=== PATIENT | female | born 1980 | race African-American/Black ===

== ENCOUNTER 2017-09-16 12:10 | Emergency (ER) | payer MEDICARE, MEDICAID ==
[~2017-09-16] VITALS: Ht 154.9 cm; Wt 62.0 kg
[2017-09-16 12:26] VITALS: BP 160/100
[2017-09-16] MEDS ORDERED: CLOT15CR73 TP (13:50)
== END 2017-09-16 13:58 | disposition home or self-care (01) ==
LOC: ER 12:10
DX: L30.9 Dermatitis, unspecified (principal); Z98.890 Other specified postprocedural states; Z88.0 Allergy status to penicillin
CPT/HCPCS: 99282

== ENCOUNTER 2020-05-03 06:58 | Emergency (ER) | payer MEDICARE, MEDICAID ==
[~2020-05-03] VITALS: Ht 154.9 cm; Wt 60.4 kg
[~2020-05-03 06:58] MED LIST: CLOT15CR73 TP
[2020-05-03 07:15] VITALS: BP 162/94
[2020-05-03 07:59] LABS: CLARITY,URINE SLIGHTLY CLOUDY (Clear); COLOR,URINE YELLOW (Yellow); GLUCOSE, URINE NEGATIVE (Neg); KETONES,URINE NEGATIVE (Neg); LEUKOCYTE ESTERASE ,URINE NEGATIVE (Neg); NITRITES, URINE NEGATIVE (Neg); OCCULT BLOOD,URINE NEGATIVE (Neg); PH,URINE 5.5 (4.8-8.0); PROTEIN,URINE NEGATIVE (Neg); UROBILINOGEN,URINE 0.2 E.U/dL (0.2-1.0)
[2020-05-03 08:00] LABS: UA COLLECTION TYPE CLN CATCH MIDSTREAM; URINE HCG NEGATIVE (NEG)
[2020-05-03] MEDS ORDERED: CefTRIAXone 250MG IM Kit w/LIDOcaine IM ONE (08:10)
[2020-05-03] MEDS ORDERED: azithromycin 250mg tablet PO ONE (08:10)
[2020-05-03 08:12] LABS: MUCUS STRANDS MODERATE /LPF (Neg); SQUAMOUS EPITHELIAL CELL,UR MANY /LPF (FEW)
[2020-05-03 08:13] LABS: BACTERIA,URINE FEW /HPF (Neg); RBC,URINE 0-2 /HPF (0-2); WBC,URINE 0-4 /HPF (0-4)
[2020-05-03 10:02] LABS: BASOPHILS # (AUTO) 0.1 X10'3 (0-0.2); BASOPHILS % (AUTO) 0.7 % (0-1); EOSINOPHILS # (AUTO) 0.1 X10'3 (0-0.9); EOSINOPHILS % (AUTO) 1.6 % (0-6); HEMATOCRIT 37.1 % (35.0-45.0); HEMOGLOBIN 12.3 g/dl (12.0-16.0); LYMPHOCYTES # (AUTO) 1.4 X10'3 (1.1-4.8); LYMPHOCYTES % (AUTO) 20.8 % (21-51); MEAN CORPUSCULAR HEMOGLOBIN 29.7 PG (27.0-31.0); MEAN CORPUSCULAR VOLUME 89.8 FL (78-98); MEAN PLATELET VOLUME 8.1 FL (7.4-10.4); MONOCYTES # (AUTO) 0.7 X10'3 (0-0.9); MONOCYTES % (AUTO) 9.4 % (2-12); NEUTROPHILS # (AUTO) 4.7 X10'3 (1.8-7.7); NEUTROPHILS % (AUTO) 67.5 % (42-75); PLATELET COUNT 332 X10'3 (140-440); RED BLOOD COUNT 4.13 X10'6 (4.20-5.60); RED CELL DISTRIBUTION WIDTH 14.8 % (11.5-14.5)
[2020-05-03 10:17] LABS: ALANINE AMINOTRANSFERASE 17 U/L (12-78); ALBUMIN 4.1 G/DL (3.4-5.0); ALKALINE PHOSPHATASE 84 IU/L (46-116); ANION GAP 7 (8-16); ASPARTATE AMINO TRANSFERASE 13 U/L (10-37); BILIRUBIN,TOTAL 0.4 MG/DL (0.1-1.0); BLOOD UREA NITROGEN 7 MG/DL (7-18); CALCIUM 9.5 MG/DL (8.5-10.1); CHLORIDE 105 MMOL/L (99-107); CREATININE 0.88 MG/DL (0.40-0.90); GLUCOSE 84 MG/DL (70-104); LIPASE 145 U/L (73-393); POTASSIUM 3.9 MMOL/L (3.5-5.1); SODIUM 139 MMOL/L (135-145); TOTAL CARBON DIOXIDE 26.7 MMOL/L (24-32); TOTAL PROTEIN 8.1 G/DL (6.4-8.2); eGFR 86 ML/MIN
[2020-05-03 10:45] LABS: PLATELET ESTIMATE NORMAL
[2020-05-03 10:47] LABS: LARGE PLATELETS FEW; SCHISTOCYTES FEW
== END 2020-05-03 11:02 | disposition home or self-care (01) ==
LOC: ER 06:58
DX: R10.30 Lower abdominal pain, unspecified (principal); R11.10 Vomiting, unspecified; I10 Essential (primary) hypertension; F17.200 Nicotine dependence, unspecified, uncomplicated; F12.90 Cannabis use, unspecified, uncomplicated; Z72.89 Other problems related to lifestyle; Z98.890 Other specified postprocedural states; Z88.0 Allergy status to penicillin; Z79.899 Other long term (current) drug therapy
CPT/HCPCS: 36415; 76856; 80053; 81001; 81025; 83690; 85008; 85025; 87210; 87491; 87591; 93976; 96372; 99284; J0696; Q0112

== ENCOUNTER 2022-01-21 20:26 | Emergency (ER) | payer MEDICARE, MEDICAID ==
[~2022-01-21] VITALS: Ht 157.5 cm; Wt 65.0 kg
[2022-01-21 20:41] VITALS: BP 150/90
[2022-01-21 21:29] LABS: CLARITY,URINE CLEAR (Clear); COLOR,URINE YELLOW (Yellow); GLUCOSE, URINE NEGATIVE (Neg); KETONES,URINE NEGATIVE (Neg); LEUKOCYTE ESTERASE ,URINE NEGATIVE (Neg); NITRITES, URINE NEGATIVE (Neg); OCCULT BLOOD,URINE NEGATIVE (Neg); PH,URINE 5.5 (4.8-8.0); PROTEIN,URINE NEGATIVE (Neg); UROBILINOGEN,URINE 0.2 E.U/dL (0.2-1.0)
[2022-01-21 21:30] LABS: URINE HCG NEGATIVE (NEG)
[2022-01-21 21:31] LABS: UA COLLECTION TYPE CLN CATCH MIDSTREAM
[2022-01-21 21:57] LABS: BASOPHILS # (AUTO) 0.1 X10'3 (0-0.2); EOSINOPHILS # (AUTO) 0.1 X10'3 (0-0.9); EOSINOPHILS % (AUTO) 1.7 % (0-6); HEMATOCRIT 34.5 % (35.0-45.0); HEMOGLOBIN 11.4 g/dl (12.0-16.0); LYMPHOCYTES # (AUTO) 2.3 X10'3 (1.1-4.8); LYMPHOCYTES % (AUTO) 37.5 % (21-51); MEAN CORPUSCULAR HEMOGLOBIN 27.3 PG (27.0-31.0); MEAN CORPUSCULAR VOLUME 82.6 FL (78-98); MONOCYTES # (AUTO) 0.7 X10'3 (0-0.9); MONOCYTES % (AUTO) 11.5 % (2-12); NEUTROPHILS % (AUTO) 48.3 % (42-75); PLATELET COUNT 372 X10'3 (140-440); RED BLOOD COUNT 4.18 X10'6 (4.20-5.60); RED CELL DISTRIBUTION WIDTH 17.2 % (11.5-14.5); WHITE BLOOD COUNT 6.1 X10'3 (4.5-11.0)
[2022-01-21 22:22] LABS: ALANINE AMINOTRANSFERASE 16 U/L (12-78); ALBUMIN 3.7 G/DL (3.4-5.0); ALBUMIN/GLOBULIN RATIO 0.9 (1.1-1.5); ALKALINE PHOSPHATASE 82 IU/L (46-116); ANION GAP 9 (8-16); ASPARTATE AMINO TRANSFERASE 13 U/L (10-37); BILIRUBIN,TOTAL 0.1 MG/DL (0.1-1.0); BLOOD UREA NITROGEN 6 MG/DL (7-18); CHLORIDE 97 MMOL/L (99-107); CREATININE 0.86 MG/DL (0.40-0.90); GLUCOSE 103 MG/DL (70-104); LIPASE 385 U/L (73-393); POTASSIUM 3.4 MMOL/L (3.5-5.1); SODIUM 133 MMOL/L (135-145); TOTAL CARBON DIOXIDE 27.2 MMOL/L (24-32); TOTAL PROTEIN 7.7 G/DL (6.4-8.2); eGFR 88 ML/MIN
[2022-01-21] MEDS ORDERED: FLUC200T PO (22:41)
== END 2022-01-21 22:52 | disposition home or self-care (01) ==
LOC: ER 20:27
DX: B37.3 Candidiasis of vulva and vagina (principal); Z11.3 Encounter for screening for infections with a predominantly sexual mode of transmission; I10 Essential (primary) hypertension; F12.10 Cannabis abuse, uncomplicated; Z88.0 Allergy status to penicillin; Z79.899 Other long term (current) drug therapy
CPT/HCPCS: 36415; 80053; 81003; 81025; 83690; 85025; 87491; 99284

== ENCOUNTER 2022-12-30 22:39 | Emergency (ER) | payer MEDICAID, MEDICARE ==
[~2022-12-30] VITALS: Ht 154.9 cm; Wt 59.1 kg
[~2022-12-30 22:39] MED LIST changes: +FLUC200T PO
[2022-12-30 22:55] VITALS: BP 187/96; PULSE 72; RESP 16; O2SAT 100
[2022-12-30 23:54] LABS: URINE HCG NEGATIVE (NEG)
[2022-12-30 23:55] LABS: BILIRUBIN,URINE NEGATIVE (Neg); CLARITY,URINE CLEAR (Clear); COLOR,URINE YELLOW (Yellow); GLUCOSE, URINE NEGATIVE (Neg); KETONES,URINE NEGATIVE (Neg); LEUKOCYTE ESTERASE ,URINE NEGATIVE (Neg); NITRITES, URINE NEGATIVE (Neg); OCCULT BLOOD,URINE NEGATIVE (Neg); PROTEIN,URINE NEGATIVE (Neg); UROBILINOGEN,URINE 0.2 E.U/dL (0.2-1.0)
[2022-12-30] MEDS ORDERED: acetaminophen 325mg tablet PO ONE (23:55)
[2022-12-31 00:02] LABS: UA COLLECTION TYPE CLN CATCH MIDSTREAM
[2022-12-31 00:33] LABS: BASOPHILS % (AUTO) 0.5 % (0-1); EOSINOPHILS # (AUTO) 0.1 X10'3 (0-0.9); EOSINOPHILS % (AUTO) 2.1 % (0-6); HEMATOCRIT 32.2 % (35.0-45.0); HEMOGLOBIN 10.4 g/dl (12.0-16.0); LYMPHOCYTES # (AUTO) 2.2 X10'3 (1.1-4.8); LYMPHOCYTES % (AUTO) 38.1 % (21-51); MEAN CORPUSCULAR HEMOGLOBIN 26.5 PG (27.0-31.0); MEAN CORPUSCULAR HGB CONC 32.4 g/dL (33.0-36.5); MEAN CORPUSCULAR VOLUME 81.8 FL (78-98); MEAN PLATELET VOLUME 7.8 FL (7.4-10.4); MONOCYTES # (AUTO) 0.7 X10'3 (0-0.9); NEUTROPHILS # (AUTO) 2.8 X10'3 (1.8-7.7); NEUTROPHILS % (AUTO) 47.3 % (42-75); PLATELET COUNT 283 X10'3 (140-440); RED BLOOD COUNT 3.93 X10'6 (4.20-5.60); RED CELL DISTRIBUTION WIDTH 17.8 % (11.5-14.5); WHITE BLOOD COUNT 5.9 X10'3 (4.5-11.0)
[2022-12-31 00:47] LABS: ALANINE AMINOTRANSFERASE 8 U/L (12-78); ALBUMIN 3.4 G/DL (3.4-5.0); ALBUMIN/GLOBULIN RATIO 0.9 (1.1-1.5); ALKALINE PHOSPHATASE 69 IU/L (46-116); ANION GAP 8 (8-16); ASPARTATE AMINO TRANSFERASE 11 U/L (10-37); BILIRUBIN,TOTAL 0.1 MG/DL (0.1-1.0); BLOOD UREA NITROGEN 12 MG/DL (7-18); BUN/CREATININE RATIO 13.8 (10.0-20.0); CALCIUM 9.2 MG/DL (8.5-10.1); CHLORIDE 103 MMOL/L (99-107); CREATININE 0.87 MG/DL (0.40-0.90); GLUCOSE 94 MG/DL (70-104); LIPASE 175 U/L (73-393); POTASSIUM 3.2 MMOL/L (3.5-5.1); SODIUM 138 MMOL/L (135-145); TOTAL CARBON DIOXIDE 27.3 MMOL/L (24-32); eCRCL 63 ML/MIN; eGFR 86 ML/MIN
[2022-12-31] MEDS ORDERED: MICO45CR73 VG (01:18)
[2022-12-31] MEDS ORDERED: POTA-207 PO (01:18)
== END 2022-12-31 01:45 | disposition home or self-care (01) ==
LOC: ER 22:40
DX: E87.6 Hypokalemia (principal); B37.9 Candidiasis, unspecified; R10.30 Lower abdominal pain, unspecified; I10 Essential (primary) hypertension; Z72.89 Other problems related to lifestyle; Z98.891 History of uterine scar from previous surgery; Z88.0 Allergy status to penicillin; Z79.899 Other long term (current) drug therapy
CPT/HCPCS: 36415; 80053; 81003; 81025; 83690; 84145; 85025; 87491; 99283

== ENCOUNTER 2023-06-24 08:24 | Emergency (ER) | payer MEDICAID ==
[~2023-06-24] VITALS: Ht 154.9 cm; Wt 63.6 kg
[~2023-06-24 08:24] MED LIST changes: +MICO45CR73 VG
[2023-06-24 08:26] VITALS: O2SAT 98
[2023-06-24] MEDS ORDERED: NEOM10SO7 RIGHT EAR (09:13)
[2023-06-24 09:35] VITALS: BP 181/109; PULSE 74; RESP 16; TEMP 97
== END 2023-06-24 09:37 | disposition home or self-care (01) ==
LOC: ER 08:25
DX: H61.22 Impacted cerumen, left ear (principal); I10 Essential (primary) hypertension; F12.90 Cannabis use, unspecified, uncomplicated; Z88.0 Allergy status to penicillin; Z79.2 Long term (current) use of antibiotics; Z79.899 Other long term (current) drug therapy; Z98.890 Other specified postprocedural states
CPT/HCPCS: 69209; 99283

== ENCOUNTER 2023-09-25 06:49 | Emergency (ER) | payer MEDICAID ==
[~2023-09-25] VITALS: Ht 154.9 cm; Wt 61.0 kg
[~2023-09-25 06:49] MED LIST changes: +NEOM10SO7 RIGHT EAR
[2023-09-25 07:08] VITALS: BP 196/97; PULSE 75; RESP 16; TEMP 97.6; O2SAT 100
[2023-09-25 07:43] LABS: BILIRUBIN,URINE NEGATIVE (Neg); CLARITY,URINE CLEAR (Clear); COLOR,URINE YELLOW (Yellow); GLUCOSE, URINE NEGATIVE (Neg); KETONES,URINE NEGATIVE (Neg); LEUKOCYTE ESTERASE ,URINE NEGATIVE (Neg); NITRITES, URINE NEGATIVE (Neg); OCCULT BLOOD,URINE NEGATIVE (Neg); PROTEIN,URINE NEGATIVE (Neg); UROBILINOGEN,URINE 0.2 E.U/dL (0.2-1.0)
[2023-09-25 07:46] LABS: URINE HCG NEGATIVE (NEG)
[2023-09-25 07:47] LABS: UA COLLECTION TYPE CLN CATCH MIDSTREAM
[2023-09-25 09:20] LABS: EOSINOPHILS # (AUTO) 0.1 X10'3 (0-0.9); LYMPHOCYTES # (AUTO) 1.4 X10'3 (1.1-4.8)
[2023-09-25 09:21] LABS: BASOPHILS % (AUTO) 0.8 % (0-1); EOSINOPHILS % (AUTO) 2.2 % (0-6); HEMATOCRIT 33.9 % (35.0-45.0); HEMOGLOBIN 10.9 g/dl (12.0-16.0); LYMPHOCYTES % (AUTO) 25.5 % (21-51); MEAN CORPUSCULAR HEMOGLOBIN 26.5 PG (27.0-31.0); MEAN CORPUSCULAR HGB CONC 32.1 g/dL (33.0-36.5); MEAN CORPUSCULAR VOLUME 82.5 FL (78-98); MONOCYTES # (AUTO) 0.6 X10'3 (0-0.9); MONOCYTES % (AUTO) 11.8 % (2-12); NEUTROPHILS # (AUTO) 3.3 X10'3 (1.8-7.7); NEUTROPHILS % (AUTO) 59.7 % (42-75); PLATELET COUNT 301 X10'3 (140-440); RED BLOOD COUNT 4.11 X10'6 (4.20-5.60); RED CELL DISTRIBUTION WIDTH 17.6 % (11.5-14.5); WHITE BLOOD COUNT 5.5 X10'3 (4.5-11.0)
[2023-09-25 09:44] LABS: HCG SERUM QL NEGATIVE
[2023-09-25 10:11] LABS: ALANINE AMINOTRANSFERASE 14 U/L (12-78); ALBUMIN 3.5 G/DL (3.4-5.0); ALBUMIN/GLOBULIN RATIO 0.9 (1.1-1.5); ALKALINE PHOSPHATASE 71 IU/L (46-116); ANION GAP 6 (8-16); ASPARTATE AMINO TRANSFERASE 12 U/L (10-37); BILIRUBIN,TOTAL 0.2 MG/DL (0.1-1.0); BLOOD UREA NITROGEN 6 MG/DL (7-18); BUN/CREATININE RATIO 8.7 (10.0-20.0); CALCIUM 9.4 MG/DL (8.5-10.1); CHLORIDE 104 MMOL/L (99-107); CREATININE 0.69 MG/DL (0.40-0.90); GLUCOSE 76 MG/DL (70-104); LIPASE 32 U/L (16-77); POTASSIUM 3.9 MMOL/L (3.5-5.1); SODIUM 135 MMOL/L (135-145); TOTAL CARBON DIOXIDE 25.2 MMOL/L (24-32); TOTAL PROTEIN 7.3 G/DL (6.4-8.2); eCRCL 79 ML/MIN; eGFR > 90 ML/MIN
[2023-09-25] MEDS ORDERED: METR-349 PO (11:06)
[2023-09-25] MEDS ORDERED: AZIT1PAC10 PO (11:06)
[2023-09-27 06:16] LABS: CHLAMYDIA TRACHOMATIS, NAA Negative (Negative)
== END 2023-09-25 17:27 | disposition home or self-care (01) ==
LOC: ER 06:49
DX: Z11.3 Encounter for screening for infections with a predominantly sexual mode of transmission (principal); I10 Essential (primary) hypertension; F12.90 Cannabis use, unspecified, uncomplicated; Z88.0 Allergy status to penicillin; Z79.2 Long term (current) use of antibiotics; Z79.899 Other long term (current) drug therapy
CPT/HCPCS: 36415; 80053; 81003; 81025; 83690; 84703; 85025; 87491; 99283

== ENCOUNTER 2024-04-18 04:47 | Emergency (ER) | payer MEDICARE, MEDICAID ==
[~2024-04-18] VITALS: Ht 154.9 cm; Wt 60.0 kg
[~2024-04-18 04:47] MED LIST changes: +AZIT1PAC10 PO
[2024-04-18 04:49] VITALS: PULSE 96; TEMP 97.4
[2024-04-18] MEDS: ondansetron 4mg rapidly disintigrating tab PO ONE (05:36)
[2024-04-18] MEDS: meclizine 12.5mg tablet PO ONE (05:37)
[2024-04-18] MEDS: acetaminophen 325mg tablet PO ONE (05:38)
[2024-04-18 06:15] LABS: URINE HCG NEGATIVE (NEG)
[2024-04-18 06:21] LABS: BILIRUBIN,URINE NEGATIVE (Neg); CLARITY,URINE CLEAR (Clear); COLOR,URINE YELLOW (Yellow); GLUCOSE, URINE NEGATIVE (Neg); KETONES,URINE NEGATIVE (Neg); LEUKOCYTE ESTERASE ,URINE NEGATIVE (Neg); NITRITES, URINE NEGATIVE (Neg); OCCULT BLOOD,URINE NEGATIVE (Neg); PROTEIN,URINE NEGATIVE (Neg); UROBILINOGEN,URINE 0.2 E.U/dL (0.2-1.0)
[2024-04-18 06:28] VITALS: BP 123/75; RESP 18; O2SAT 96
[2024-04-18 06:30] LABS: UA COLLECTION TYPE CLN CATCH MIDSTREAM
[2024-04-21 07:10] LABS: CHLAMYDIA TRACHOMATIS, NAA Negative (Negative)
== END 2024-04-18 06:00 | disposition home or self-care (01) ==
LOC: ER 04:47
DX: Z11.3 Encounter for screening for infections with a predominantly sexual mode of transmission (principal); I10 Essential (primary) hypertension; F12.90 Cannabis use, unspecified, uncomplicated; R42 Dizziness and giddiness; Z88.0 Allergy status to penicillin; Z98.890 Other specified postprocedural states
CPT/HCPCS: 36415; 81003; 81025; 87491; 87591; 99284; J8597

== ENCOUNTER 2024-06-05 02:24 | Emergency (ER) | payer MEDICARE, MEDICAID ==
[~2024-06-05] VITALS: Ht 154.9 cm; Wt 60.3 kg
[2024-06-05 02:28] VITALS: TEMP 98.2
[2024-06-05 02:56] LABS: URINE HCG NEGATIVE (NEG)
[2024-06-05 02:59] LABS: BILIRUBIN,URINE NEGATIVE (Neg); CLARITY,URINE CLEAR (Clear); COLOR,URINE YELLOW (Yellow); GLUCOSE, URINE NEGATIVE (Neg); KETONES,URINE NEGATIVE (Neg); LEUKOCYTE ESTERASE ,URINE NEGATIVE (Neg); NITRITES, URINE NEGATIVE (Neg); OCCULT BLOOD,URINE TRACE-INTACT (Neg); PH,URINE 5.5 (4.8-8.0); PROTEIN,URINE 30 mg/dl (Neg); UROBILINOGEN,URINE 0.2 E.U/dL (0.2-1.0)
[2024-06-05 03:05] LABS: UA COLLECTION TYPE CLN CATCH MIDSTREAM
[2024-06-05 03:12] LABS: BACTERIA,URINE 4+ /HPF (Neg); RBC,URINE 0-2 /HPF (0-2); SQUAMOUS EPITHELIAL CELL,UR MANY /LPF (FEW); WBC,URINE 0-4 /HPF (0-4)
[2024-06-05 03:14] LABS: MEAN PLATELET VOLUME 8.1 FL (7.4-10.4); MONOCYTES # (AUTO) 0.6 X10'3 (0-0.9)
[2024-06-05 03:15] LABS: BASOPHILS % (AUTO) 0.6 % (0-1); EOSINOPHILS % (AUTO) 0.5 % (0-6); HEMATOCRIT 36.5 % (35.0-45.0); LYMPHOCYTES # (AUTO) 1.2 X10'3 (1.1-4.8); LYMPHOCYTES % (AUTO) 15.3 % (21-51); MEAN CORPUSCULAR HEMOGLOBIN 27.8 PG (27.0-31.0); MEAN CORPUSCULAR HGB CONC 32.8 g/dL (33.0-36.5); MEAN CORPUSCULAR VOLUME 84.8 FL (78-98); MONOCYTES % (AUTO) 7.6 % (2-12); NEUTROPHILS # (AUTO) 5.9 X10'3 (1.8-7.7); PLATELET COUNT 378 X10'3 (140-440); RED CELL DISTRIBUTION WIDTH 18.2 % (11.5-14.5); WHITE BLOOD COUNT 7.7 X10'3 (4.5-11.0)
[2024-06-05] MEDS: ketorolac trometh 15mg/ml vial 15 MG/ML ML IM ONE (03:25)
[2024-06-05 03:32] LABS: ALANINE AMINOTRANSFERASE 16 U/L (12-78); ALBUMIN 3.9 G/DL (3.4-5.0); ALKALINE PHOSPHATASE 84 IU/L (46-116); ANION GAP 9 (8-16); ASPARTATE AMINO TRANSFERASE 11 U/L (10-37); BILIRUBIN,TOTAL 0.4 MG/DL (0.1-1.0); BLOOD UREA NITROGEN 5 MG/DL (7-18); CHLORIDE 101 MMOL/L (99-107); CREATININE 0.83 MG/DL (0.40-0.90); GLUCOSE 141 MG/DL (70-104); LIPASE 44 U/L (16-77); POTASSIUM 3.3 MMOL/L (3.5-5.1); SODIUM 136 MMOL/L (135-145); TOTAL CARBON DIOXIDE 25.6 MMOL/L (24-32); eCRCL 65 ML/MIN; eGFR 90 ML/MIN
[2024-06-05 03:56] LABS: PLATELET ESTIMATE NORMAL
[2024-06-05] MEDS ORDERED: iohexol 300mg/ml 100ml inj. ONE (04:08)
[2024-06-05 05:06] VITALS: BP 165/85; PULSE 80; RESP 15; O2SAT 99
[2024-06-05] MEDS ORDERED: FLUC200T8 PO (05:07)
[2024-06-05] MEDS ORDERED: CEFU250T95 PO (05:07)
== END 2024-06-05 05:16 | disposition home or self-care (01) ==
LOC: ER 02:25
DX: N39.0 Urinary tract infection, site not specified (principal); D25.9 Leiomyoma of uterus, unspecified; I10 Essential (primary) hypertension; F12.90 Cannabis use, unspecified, uncomplicated; F17.210 Nicotine dependence, cigarettes, uncomplicated; Z88.0 Allergy status to penicillin; Z98.890 Other specified postprocedural states
CPT/HCPCS: 36415; 74176; 74177; 80053; 81001; 81025; 83690; 85008; 85025; 96372; 99285; J1885; Q9967

== ENCOUNTER 2025-01-23 06:52 | Emergency (ER) | payer MEDICAID, MEDICARE ==
[~2025-01-23] VITALS: Ht 154.9 cm; Wt 58.1 kg
--- NOTE | 2025-01-23 07:09 | Physician Documentation ---
History of Present Illness General Chief Complaint: Abdominal Pain Stated Complaint: ABD PAIN Time Seen by MD: 07:05 Primary Medical Doctor: [facility] History of Present Illness Initial Comments The patient is a 44-year-old female with a history of hypertension and bacterial vaginosis who presents today with left lower abdominal pain over the past few days. She does have a history of yeast infections and UTIs. Her last menstrual period was the 1st of last month. Medication Reconciliation Allergies: Coded Allergies: Penicillins (Unverified Allergy, Intermediate, 01/23/25) Past Medical History Past Medical History: Hypertension Past Surgical History: Smoking: Cigarettes Alcohol Use: Occasionally Drug Use: marijuana Lives with: Family Lives In: Home Review of Systems ROS Constitutional: Denies chills, fatigue, fever, weight gain or weight loss. HEENT: Denies hearing loss, sinus pressure or visual changes. Respiratory: Denies cough, shortness of breath or wheezing. Cardiovascular: Denies chest pain, pain while walking (claudication), edema or palpitations. Gastrointestinal: Lower abdominal pain similar to her visit in June of this year. Genitourinary: Denies painful urination (dysuria), excessive amount of urine (polyuria) or urinary frequency. Metabolic/Endocrine: Denies cold intolerance, heat intolerance, excessive thirst (polydipsia) or excessive hunger (polyphagia). Neurological: Denies dizziness, extremity numbness, extremity weakness, headaches, seizures or tremors. Psychiatric: Denies anxiety or depression. Integumentary: Denies breast discharge, breast lump, hives, mole change(s), rash or skin lesion. Musculoskeletal: Denies back pain, joint pain, joint swelling or neck pain. Hematologic: Denies easily bleeding, easily bruises, lymphedema or issues with blood clots. Immunologic: Denies food allergies or seasonal allergies. Physical Exam Physical Exam Vital Signs: Temperature: 97.6, Source: Oral, Heart Rate: 96, Respiratory Rate: 18, BP: 148/86, Pulse Oximetry: 98, Weight: 58.100 Physical Exam Physical Exam Vitals and nursing note reviewed. Constitutional: General: Patient is awake, alert, oriented x 4 in no acute distress and well appearing. Speech is clear and lucid. Appearance: Normal appearance. Patient is not ill-appearing, toxic-appearing or diaphoretic. HENT: Head: Normocephalic and atraumatic. Mouth/Throat: Mouth: Mucous membranes are moist. Pharynx: Oropharynx is clear. Eyes: General: No scleral icterus. Extraocular Movements: Extraocular movements intact. Pupils: Pupils are equal, round, and reactive to light. Neck: Supple, no Kernig or Brudzinski sign. Cardiovascular: Rate and Rhythm: Normal rate and regular rhythm. Heart sounds: No murmur heard. Pulmonary: Effort: No respiratory distress. Breath sounds: No wheezing, rhonchi or rales. Abdominal: General: There is no distension. Palpations: There is no fluid wave, hepatomegaly or mass. Tenderness: There is no abdominal tenderness. There is no guarding. Musculoskeletal: General: No swelling or deformity. Skin: Coloration: Skin is not jaundiced. Findings: No erythema or rash. Neurological: Mental Status: Patient is alert. Progress Results/Orders Results/Orders Orders - JOAQUIN SOLIMAN MD Chlam/Gc Amp Ur (01/23/25 08:08) Us Pelvis Ltd (01/23/25 ) Ultrasound Pelvis W/Orwo Dplx (01/23/25 ) Completed Orders - JOAQUIN SOLIMAN MD Urinalysis, Cult If Indicated (01/23/25 07:01) Hcg, Ur Ql (01/23/25 07:01) Cbc/Diff (01/23/25 07:01) BMP (01/23/25 07:01) Lipase (01/23/25 07:01) CMP (01/23/25 07:01) Acetaminophen 325mg Tablet (Tylenol Tabl (01/23/25 07:25) Medications Received in ER Medications (Trade) Dose Ordered Sig/Aruna Route PRN Reason Start Time Stop Time Status Last Admin Dose Admin (Tylenol tablet) 650 mg ONCE STAT PO 01/23/25 07:25 01/23/25 07:27 DC 01/23/25 07:32 650 MG Vital Signs 01/23/25 01/23/25 01/23/25 01/23/25 06:56 07:21 07:33 08:13 Temp 97.6 97.6 97.6 Pulse 96 81 69 Resp 18 16 16 B/P (MAP) 148/86 150/90 (110) 143/77 (99) Pulse Ox 98 100 100 O2 Flow Rate 0 0 Laboratory Tests Test 01/23/25 07:10 01/23/25 07:20 Urine Specimen Description Cln catch midstream Urine Color Straw Urine Clarity Clear Urine pH 6.0 Urine Specific [place] 1.015 Urine Protein Negative Urine Glucose (UA) Negative Urine Ketones Negative Urine Occult Blood Negative Urine Nitrite Negative Urine Bilirubin Negative Urine Urobilinogen 0.2 Urine Leukocyte Esterase Negative Urine Culture Indicated Not ind Volume Urine Centrifuged 10 ml Urine HCG, Qualitative Negative Urine Comment White Blood Count 5.9 Red Blood Count 4.18 L Hemoglobin 11.9 L Hematocrit 36.6 Mean Corpuscular Volume 87.5 Mean Corpuscular Hemoglobin 28.6 Mean Corpuscular Hemoglobin Concent 32.6 L Red Cell Distribution Width 15.0 H Platelet Count 362 Mean Platelet Volume 8.1 Neutrophils (%) (Auto) 56.9 Lymphocytes (%) (Auto) 29.6 Monocytes (%) (Auto) 10.6 Eosinophils (%) (Auto) 2.1 Basophils (%) (Auto) 0.8 Neutrophils # (Auto) 3.3 Lymphocytes # (Auto) 1.7 Monocytes # (Auto) 0.6 Eosinophils # (Auto) 0.1 Basophils # (Auto) 0.0 CBC Comment Sodium Level 139 Potassium Level 3.9 Chloride Level 104 Carbon Dioxide Level 24.0 Anion Gap 11 Blood Urea Nitrogen 10 Creatinine 0.86 Estimated GFR/1.73 m2 86 BUN/Creatinine Ratio 11.6 Glucose Level 95 Calcium Level 9.7 Total Bilirubin 0.3 Aspartate Amino Transf (AST/SGOT) 15 Alanine Aminotransferase (ALT/SGPT) 16 Alkaline Phosphatase 80 Total Protein 8.0 Albumin 3.8 Globulin 4.2 Albumin/Globulin Ratio 0.9 L Lipase 104 H Chemistry Comments Medical Decision Making Findings This 44-year-old lady with a history of bacterial vaginosis comes in with some left suprapubic pain and vaginal discharge characteristic of her prior episodes of bacterial vaginosis. She is also prone to yeast infections. Urinalysis is within normal limits. Ultrasound of the pelvis reveals good vascular flow in both ovaries and numerous uterine fibroids, reported before. I am going to treat her with metronidazole and fluconazole. I will have her follow-up with her PCP and I have provided return precautions. Departure Disposition: 01 HOME / SELF CARE / HOMELESS Impression: Primary Impression: Bacterial vaginosis Additional Impression: Fibroid uterus Condition: Stable Additional Instructions: Please take the metronidazole (Flagyl) as directed. Take one fluconazole every three days. Please follow-up with your PCP next week. Return here for worsening symptoms or new/unusual symptoms. Referrals: NO PRIMARY CARE PROVIDER (PCP) Prescriptions Fluconazole* (Diflucan*) 150 Mg Tablet 1 TAB PO as directed, #2 TAB Prov: JOAQUIN SOLIMAN MD 01/23/25 Metronidazole* (Flagyl*) 500 Mg Tablet 1 TAB PO Q12H for 7 Days, #14 TAB Prov: JOAQUIN SOLIMAN MD 01/23/25 Education Educated: Patient Educated regarding: diagnosis, treatment, prognosis, need for follow up Signature Scribe Signature: . Attestation: . JOAQUIN SOLIMAN MD Jan 23, 2025 07:09
[2025-01-23 07:35] LABS: URINE HCG NEGATIVE (NEG)
[2025-01-23 07:42] LABS: LEUKOCYTE ESTERASE ,URINE NEGATIVE (Neg); NITRITES, URINE NEGATIVE (Neg); OCCULT BLOOD,URINE NEGATIVE (Neg)
[2025-01-23 07:43] LABS: UA COLLECTION TYPE CLN CATCH MIDSTREAM
[2025-01-23 07:46] LABS: MEAN PLATELET VOLUME 8.1 FL (7.4-10.4); RED CELL DISTRIBUTION WIDTH 15.0 % (11.5-14.5)
[2025-01-23 07:50] LABS: CREATININE 0.86 MG/DL (0.40-0.90); TOTAL CARBON DIOXIDE 24.0 MMOL/L (24-32); eCRCL 62 ML/MIN; eGFR 86 ML/MIN
[2025-01-23] MEDS ORDERED: METR-159 PO (09:37)
[2025-01-23] MEDS ORDERED: DIF150T PO (09:37)
[2025-01-23 09:56] VITALS: BP 150/90; PULSE 73; RESP 15; TEMP 97.6; O2SAT 100
--- NOTE | 2025-01-23 10:08 | RADIOLOGY REPORT ---
INDICATION: Left suprapubic pain TECHNIQUE: Multiple real-time sonographic images were obtained of the Abdomen. COMPARISON: None FINDINGS: Multiple fibroid seen throughout of the uterus for example heterogenous vascular subserosal fibroid seen within the lower uterine segment measuring up to 4.7 x 4.1 x 4.2 cm. A heterogenous nonvascular subserosal fibroid at the fundus measures 2.9 x 2.5 x 3.0 cm. Endometrial stripe measures 5.2 mm. Right ovary measures 2.6 x 2.1 x 2.3 cm and left ovary measures 2.6 x 1.8 x 2.5 cm. Normal vascular flow is noted within bilateral ovaries. IMPRESSION: 1. Fibroid uterus. 2. No acute ovarian torsion at this time.
== END 2025-01-23 09:59 | disposition home or self-care (01) ==
LOC: ER 06:53
DX: D25.9 Leiomyoma of uterus, unspecified (principal); N76.0 Acute vaginitis; I10 Essential (primary) hypertension; F17.210 Nicotine dependence, cigarettes, uncomplicated; F12.90 Cannabis use, unspecified, uncomplicated; Z72.89 Other problems related to lifestyle; Z88.0 Allergy status to penicillin; Z98.890 Other specified postprocedural states
CPT/HCPCS: 36415; 76830; 76856; 80053; 81003; 81025; 83690; 85025; 87491; 93976; 99284